=== PATIENT | female | born 1980 | race African-American/Black ===

== ENCOUNTER 2022-09-06 13:48 | Emergency (ER) | payer BC ==
[~2022-09-06] VITALS: Ht 162.6 cm; Wt 62.0 kg
[2022-09-06] MEDS ORDERED: KETOROLAC 60MG/2ML VIAL IM ONE (15:15)
[2022-09-06 16:08] VITALS: BP 128/94
[2022-09-06] MEDS ORDERED: AMOX1TAB16 MT (16:25)
[2022-09-06] MEDS ORDERED: IBUP-2028 MT (16:25)
== END 2022-09-06 17:36 | disposition home or self-care (01) ==
LOC: ER 13:48
DX: K08.89 Other specified disorders of teeth and supporting structures (principal); R51.9 Headache, unspecified; I49.9 Cardiac arrhythmia, unspecified
CPT/HCPCS: 93005; 96372; 99283; J1885; Z7610